=== PATIENT | male | born 1975 | race Caucasian/White ===

== ENCOUNTER 2018-03-22 05:24 | Emergency (ER) | payer OTHER, SELFPAY ==
[2018-03-22] MEDS ORDERED: Ketorolac Tromethamine 60 MG/2 ML VIAL ONE (05:35)
[2018-03-22 05:56] LABS: Bilirubin Negative (Negative); Blood, Urine Large (Negative); Clarity CLEAR (Clear); Glucose, Urine (Dipstick) Negative (Negative); Leukocyte Negative (Negative); Nitrite Negative (Negative); Protein, Urine (Dipstick) Negative (Neg-Trace); Specific Gravity, Urine 1.021 (1.002-1.036); Urobilinogen 0.2 mg/dL (0.2-1.0)
[2018-03-22 05:57] LABS: #Basophils 0.1 thou/uL (0.0-0.2); #Eosinphils 0.1 thou/uL (0.0-0.7); #Lymphocytes 3.3 thou/uL (1.20-3.40); #Monocytes 0.8 thou/uL (0.11-0.59); #Neutrophils 10.8 thou/uL (1.40-6.50); %Basophils 0.6 % (0.0-1.0); %Eosinophils 0.8 % (0.0-10.0); %Lymphocytes 21.7 % (21.0-51.0); Hemoglobin 16.9 g/dL (14.0-18.0); Mean Corpuscular HGB CONC 32.8 g/dL (32.0-36.0); Mean Corpuscular Volume 88.4 fL (78.0-98.0); Mean Platelet Volume 7.4 fL (7.4-10.4); Platelet Count 218 thou/uL (130-400); RBC Distribution Width 12.2 % (11.5-14.5); Red Blood Cell (RBC) Count 5.84 mill/uL (4.70-6.10)
[2018-03-22 05:59] LABS: Bacteria/HPF None Seen HPF (None Seen); Hyaline Casts/LPF 0-3 HYALINE CAST LPF (0-3 Hyaline); RBC/HPF GREATER THAN 50-TNTC HPF (0-3); Squamous Epithelial 0-3 HPF (0-3); WBC/HPF 0-3 HPF (0-3)
[2018-03-22 06:17] LABS: ALT (SGPT) 15 U/L (8-55); AST (SGOT) 17 U/L (5-34); Albumin 4.3 g/dL (3.5-5.0); Alkaline Phosphatase 57 U/L (40-150); Anion Gap 19 mmol/L (10-20); BUN (Urea Nitrogen) 13 mg/dL (8.9-20.6); Bilirubin, Total 0.7 mg/dL (0.2-1.2); Calc. Creatinine Clearance 0 mL/min (70-130); Calcium 9.4 mg/dL (7.8-10.44); Carbon Dioxide 21 mmol/L (22-29); Chloride 104 mmol/L (98-107); Estimated GFR-MDRD 62; Globulin 2.6 g/dL (2.4-3.5); Glucose 152 mg/dL (70-105); Protein, Total 6.9 g/dL (6.0-8.3); Sodium 140 mmol/L (136-145)
[2018-03-22] MEDS ORDERED: Ondansetron ODT 4 MG TAB ONE (06:18)
--- NOTE | 2018-03-22 07:39 | CT ---
CT ABDOMEN AND PELVIS WITHOUT CONTRAST STONE PROTOCOL: Date: 03/22/18 HISTORY: Back pain. Right-sided flank pain. Urinary frequency. COMPARISON: None. FINDINGS: Lung bases are clear. No pericardial effusion. There is mild to moderate right-sided hydroureteronephrosis due to a distal partially obstructing teodoro culus at the ureterovesical junction measuring 1.0 x 2.0 mm. This is within the bladder side of the u reterovesical junction. Mild hydroureter and hydronephrosis. There are left-sided parapelvic cysts. N o left-sided hydroureteronephrosis. There is a 2.0 mm calculus in the superior pole of the right juancho l collecting system. No calculus in the left-sided renal collecting system. Noncontrast evaluation of the spleen, liver, and gallbladder are all unremarkable. Pancreas unremarka ble. The aortoiliac contour is nonaneurysmal. No dilated loops of large or small bowel. Pancreas visualized and is normal. IMPRESSION: 1. Mild right-sided hydroureteronephrosis due to a distal ureterovesical junction 1.0 x 2.0 mm calcu alistair. 2. Small calculus superior pole right renal collecting system measuring up to 2.0 mm. 3. No left-sided hydroureteronephrosis or nephroureterolithiasis. POS: [facility]
--- NOTE | 2018-03-22 07:42 | ULT ---
ULTRASOUND TESTICULAR WITH DOPPLER: Back pain, testicular pain. COMPARISON: None. FINDINGS: The background echotexture and vascularity of both testicles is normal. Both epididymi are normal. NO hydrocele. The right testicle measures 2.2 x 4.6 x 2.2. The left testicle measures 2.9 x 4.1 x 2.1 cm. Both epididymi are normal. IMPRESSION: Normal exam. POS: [facility]
[2018-03-22] MEDS ORDERED: Ketorolac Tromethamine 30 MG/ML VIAL ONE (07:49)
== END 2018-03-22 08:14 | disposition home or self-care (01) ==
LOC: ERS 05:24
DX: N13.2 Hydronephrosis with renal and ureteral calculous obstruction (principal); F41.9 Anxiety disorder, unspecified
CPT/HCPCS: 36415; 74176; 76870; 80053; 81003; 81015; 85025; 93976; 96361; 96372; 96374; 96375; J1885; J2270; Q0162

== ENCOUNTER 2022-04-27 18:41 | Emergency (ER) | payer OTHER, SELFPAY | END 2022-04-27 19:53 | disposition home or self-care (01) | LOC: ERS 18:41 | DX: M54.42 Lumbago with sciatica, left side (principal) | CPT/HCPCS: 99283 ==

== ENCOUNTER 2022-05-06 06:48 | Emergency (ER) | payer OTHER ==
[2022-05-06] MEDS ORDERED: Ketorolac Tromethamine 30 MG/ML VIAL ONE (07:23)
[2022-05-06] MEDS ORDERED: HYDROcodone/Acetaminophen 10/325 mg Tablet ONE (07:25)
[2022-05-06 08:17] LABS: Bilirubin Negative (Negative); Blood, Urine Negative (Negative); Clarity Turbid (Clear); Glucose, Urine (Dipstick) Normal (Negative); Ketone, Urine Negative (Negative); Leukocyte Negative Leu/uL (Negative); Nitrite Negative (Negative); Protein, Urine (Dipstick) 10 mg/dL (Neg-Trace); Specific Gravity, Urine 1.027 (1.002-1.036); Urobilinogen Normal mg/dL (Less than 2)
== END 2022-05-06 08:53 | disposition home or self-care (01) ==
LOC: ERS 06:48
DX: M54.16 Radiculopathy, lumbar region (principal)
CPT/HCPCS: 81003; 96372; 99283; J1885

== ENCOUNTER 2023-05-13 10:42 | Emergency (ER) | payer OTHER | END 2023-05-13 13:31 | disposition home or self-care (01) | LOC: ERS 10:42 | DX: B34.9 Viral infection, unspecified (principal) | CPT/HCPCS: 87081; 87430; 99283 ==